=== PATIENT | female | born 1970 | race Caucasian/White ===

== ENCOUNTER 2016-09-04 12:52 | Emergency (ER) ==
[2016-09-04 12:52] VITALS: BMI 32.2
[2016-09-04 12:59] VITALS: BP 121/82; TEMP 98.7
[2016-09-04] MEDS ORDERED: DILAUDID 1 MG/ML SYRINGE IM STA (13:49)
--- NOTE | 2016-09-04 13:50 | ED.PDOC ---
General ED Provider: Dr. LACY BARKER JR Chief Complaint: Tooth Problem Stated Complaint: severe pain left side of head from bad teeth[End]left tooth, facial pain[End]. 02/25 98.7 88 20 97 121/81 Time Seen by Physician: 13:55 Mode of Arrival: Walk-In Information Source: Patient Exam Limitations: No limitations Primary Care Provider: NASIM POTTER Nursing and Triage Documentation Reviewed and Agree: No Review of Systems - Review Of Systems Constitutional: Reports: No symptoms Eyes: Reports: No symptoms Ears, Nose, Mouth, Throat: Reports: Ear pain, Mouth pain, Mouth swelling Respiratory: Reports: Cough Cardiac: Reports: No symptoms GI: Reports: No symptoms : Reports: No symptoms Musculoskeletal: Reports: No symptoms Skin: Reports: No symptoms Neurological: Reports: No symptoms Endocrine: Reports: No symptoms Hematologic/Lymphatic: Reports: No symptoms All Other Systems: Other Past Medical History - Past Medical History Previously Healthy: Yes Endocrine: Reports: None Cardiovascular: Reports: Hypertension Respiratory: Reports: None Hematological: Reports: None Gastrointestinal: Reports: None Genitourinary: Reports: None Neuro/Psych: Reports: None Musculoskeletal: Reports: Arthritis, Back Pain Cancer: Reports: None Last Menstrual Period: nowback surgery x2, left ear surgery, ovarian cyst htn arth Other Pertinent Past Medical History: Dental caries. - Surgical History General Surgical History: Reports: Other (left ear surgery), Unknown. Denies: Back Surgery (back surgery x2, , ovarian cyst htn arth) - Family History Family History: Reports: Unknown - Social History Smoking Status: Current every day smoker Hx Substance Use: No Alcohol Screening: None Physical Exam - Physical Exam Appearance: Well-appearing Ill-appearing: Moderate Pain Distress: Moderate Eyes: PETER, EOMI, Conjunctiva clear ENT: Ears normal, Nose normal, Oropharynx normal Neck: Supple Respiratory: Airway patent, Breath sounds clear, Breath sounds equal, Respirations nonlabored Cardiovascular: RRR, Pulses normal, No rub, No murmur GI/: Soft, Nontender, No masses, Bowel sounds normal, No Organomegaly Musculoskeletal: Normal strength, ROM intact, No edema, No calf tenderness Skin: Warm, Dry, Normal color Neurological: Sensation intact, Motor intact, Reflexes intact, Cranial nerves intact, Alert, Oriented Re-Evaluation - Re-Evaluation Time of Re-Evaluation: 15:22 (disc CXR states will have PMD recheck Xray in [address] offered) Status: Improved Critical Care Note - Critical Care Note Total Time (mins): 0 Course - Course Vital Signs: Temp Pulse Resp BP Pulse Ox 09/04/16 12:54 98.7 F 88 20 121/82 97 Departure - Departure Time of Disposition: 13:56 Disposition: HOME SELF-CARE Discharge Problem: Dental abscess, Lung nodule seen on imaging study Instructions: Dental Abscess (ED), Pulmonary Nodules (ED) Condition: Good Pt referred to PMD for follow-up: Yes Additional Instructions: Augmentin for infection Naprosyn for pain follow up with dentist as soon as possible may take your [place] for pain with Naprosyn antihistamine decongestant for congestion, claritin antihistamine - or any antihistamine note nodule on Chest XRAY- will need to be rechecked in 3 months =discuss xray with your physician Prescriptions: Naproxen [Naprosyn] 500 mg PO Q12HR PRN #30 tablet PRN Reason: PAIN Amoxicillin/Potassium Clav [Augmentin 875-125 mg Tab] 1 tab PO BIDWM #14 tablet Loratadine [Claritin] 10 mg PO DAILY #30 capsule Allergies/Adverse Reactions: Allergies No Known Allergies Allergy (Verified 09/04/16 12:53) Home Medications: Ambulatory Orders Albuterol Sulfate [Proair Hfa] 2 puff IH Q4H PRN 09/04/16 Amoxicillin/Potassium Clav [Augmentin 875-125 mg Tab] 1 tab PO BIDWM #14 tablet 09/04/16 Budesonide/Formoterol Fumarate [Symbicort 160-4.5 Mcg Inhaler] 2 puff IH BID Diazepam [Valium] 10 mg PO QID PRN 09/04/16 Gabapentin [Neurontin] 800 mg PO QID 09/04/16 Hydrochlorothiazide 25 mg PO DAILY 09/04/16 Hydrocodone/Acetaminophen [[place] 10-325 Tablet] 1 each PO QID PRN 09/04/16 Lisinopril 10 mg PO DAILY 09/04/16 Loratadine [Claritin] 10 mg PO DAILY #30 capsule 09/04/16 Naproxen [Naprosyn] 500 mg PO Q12HR PRN #30 tablet 09/04/16
[2016-09-04] MEDS ORDERED: AUGMENTIN 875-125 MG TAB PO STA (13:54)
[2016-09-04] MEDS ORDERED: CORTISPORIN OTIC SUSP OT STA (14:25)
--- NOTE | 2016-09-04 15:10 | DI ---
EXAM: Chest two view, frontal and lateral views. HISTORY: Hemoptysis. COMPARISON: None available. FINDINGS: The heart size is normal. There is no pulmonary vascular congestion. Small nodular dens ity projects over the medial right clavicle on the frontal view, not well seen on the lateral view. A few thin linear opacities are seen in the left base. Otherwise, the lungs are clear. No pleural effusion or pneumothorax is seen. No acute osseous abnormality identified. IMPRESSION: Question medial right apical nodule versus sclerotic bone lesion. Consider chest CT for further mary luation.
== END 2016-09-04 15:30 | disposition home or self-care (01) ==
LOC: ED 12:52
DX: K04.7 Periapical abscess without sinus (principal); R91.1 Solitary pulmonary nodule; F17.210 Nicotine dependence, cigarettes, uncomplicated; Z79.899 Other long term (current) drug therapy
CPT/HCPCS: 96372; 99283

== ENCOUNTER 2017-07-01 19:02 | Emergency (ER) ==
[2017-07-01 19:12] VITALS: TEMP 99; BMI 32.9
--- NOTE | 2017-07-01 19:39 | ED.PDOC ---
General ED Provider: Dr. BROKC MACK Chief Complaint: Tooth Problem Stated Complaint: Patient is a 47 year old female who comes to the ER with Dental pain. She is to been seen by the dentist and is to have full dental extraction in two weeks. Pain is worse since she has had some broken teeth recently. Time Seen by Physician: 19:37 Mode of Arrival: Walk-In Information Source: Patient Exam Limitations: No limitations Primary Care Provider: NASIM POTTER Nursing and Triage Documentation Reviewed and Agree: Yes Reviewed sepsis parameters & appropriate labs ordered?: Yes System Inflammatory Response Syndrome: Not Applicable Sepsis Protocol: For patient's 13 years and over: Temp is 96.8 and below OR 101 and greater Pulse >90 BPM Resp >20/minute Acutely Altered Mental Status Are patient's symptoms suggestive of a new infection, such as: -Pneumonia -Skin, Soft Tissue -Endocarditis -UTI -Bone, Joint Infection -Implantable Device -Acute Abdominal Infection -Wound Infection -Meningitis -Blood Stream Catheter Infection -Unknown System Inflammatory Response Syndrome: Not Applicable EENT Complaint Exam - Dental/Oral Complaint/Exam Mechanism of Injury: No known trauma Onset/Duration: months Symptoms Are: Still present Timing: Constant Initial Severity: Moderate Current Severity: Severe Location: whole mouth Character: Reports: Aching, Throbbing Aggravating: Reports: Heat, Cold, Chewing Alleviating: Reports: None Associated Signs and Symptoms: Reports: Foul odor, Foul taste in mouth Related History: Reports: Previous tooth problem, Third molars absent Dental/Oral Surgical History: Reports: Third Molar Extractions Tooth Findings: Present: Gross decay, Gross caries, Dental fracture, Abcess Cervical Lymphadenopathy Present: No Facial Swelling Present: No Bleeding Present: No Oropharynx Findings: Absent: Clots, Active bleeding Septal Hematoma: No Foreign Body Present: No Dysphagia Present: No Asymmetrical Tonsillar Swelling Present: No Uvula Midline: No Sury-tonsillar Fluctuence: No Trismus Present: No Palatal Petechiae Present: No Scarlatinaform Rash Present: No Teeth Picture: 1 - diffuse carries 2 - diffuse carries Differential Diagnoses: Dental Abcess, Dental Caries Review of Systems - Review Of Systems Constitutional: Reports: No symptoms Eyes: Reports: No symptoms Ears, Nose, Mouth, Throat: Reports: Mouth pain, Loose teeth Respiratory: Reports: No symptoms Cardiac: Reports: No symptoms GI: Reports: No symptoms : Reports: No symptoms Musculoskeletal: Reports: No symptoms Skin: Reports: No symptoms Neurological: Reports: No symptoms Endocrine: Reports: No symptoms Hematologic/Lymphatic: Reports: No symptoms All Other Systems: Reviewed and Negative Past Medical History - Past Medical History Previously Healthy: Yes Endocrine: Reports: None Cardiovascular: Reports: Hypertension Respiratory: Reports: COPD Hematological: Reports: None Gastrointestinal: Reports: None Genitourinary: Reports: None Neuro/Psych: Reports: None Musculoskeletal: Reports: Arthritis, Back Pain Cancer: Reports: None Last Menstrual Period: 4 WEEKS AGO Other Pertinent Past Medical History: Dental caries. - Surgical History General Surgical History: Reports: Other (left ear surgery), Unknown. Denies: Back Surgery (back surgery x2, , ovarian cyst htn arth) - Family History Family History: Reports: Unknown - Social History Smoking Status: Current every day smoker, Heavy tobacco smoker Hx Substance Use: No Alcohol Screening: None - Immunizations Tetanus Shot up to Date: Yes Physical Exam - Physical Exam Appearance: Ill-appearing Ill-appearing: Mild Pain Distress: Severe Eyes: PETER, EOMI, Conjunctiva clear ENT: Ears normal, Nose normal, Oropharynx normal Neck: Supple Respiratory: Airway patent, Breath sounds clear, Breath sounds equal, Respirations nonlabored Cardiovascular: RRR, Pulses normal, No rub, No murmur GI/: Soft, Nontender, No masses, Bowel sounds normal, No Organomegaly Musculoskeletal: Normal strength, ROM intact, No edema, No calf tenderness Skin: Warm, Dry, Normal color Neurological: Sensation intact, Motor intact, Reflexes intact, Cranial nerves intact, Alert, Oriented Psychiatric: Anxious Critical Care Note - Critical Care Note Total Time (mins): 0 Course - Course Vital Signs: Temp Pulse Resp BP Pulse Ox 07/01/17 19:02 99 F 93 H 20 181/113 H 97 Departure - Departure Time of Disposition: 19:44 Disposition: HOME SELF-CARE Discharge Problem: Dental caries Instructions: Dental Caries (GEN) Condition: Fair Pt referred to PMD for follow-up: No IPMP verified?: No Additional Instructions: Take medications as prescribed Follow up with the dentist in 2 weeks for extraction Prescriptions: Amoxicillin [Amoxil] 500 mg PO TID #30 capsule Tramadol HCl [Ultram] 50 mg PO Q6H PRN #25 tablet PRN Reason: Severe Pain Allergies/Adverse Reactions: Allergies No Known Allergies Allergy (Verified 07/01/17 19:12) Home Medications: Ambulatory Orders Albuterol Sulfate [Proair Hfa] 2 puff IH Q4H PRN 09/04/16 Budesonide/Formoterol Fumarate [Symbicort 160-4.5 Mcg Inhaler] 2 puff IH BID Gabapentin [Neurontin] 800 mg PO QID 09/04/16 Risperidone [Risperdal] 0.5 mg PO DAILY 06/14/17 Amoxicillin [Amoxil] 500 mg PO TID #30 capsule 07/01/17 Tramadol HCl [Ultram] 50 mg PO Q6H PRN #25 tablet 07/01/17 Disposition Discussed With: Patient
[2017-07-01] MEDS ORDERED: AMOXIL PO STA (19:51)
[2017-07-01] MEDS ORDERED: ULTRAM PO STA (19:52)
[2017-07-01 19:58] VITALS: BP 180/99
== END 2017-07-01 20:05 | disposition home or self-care (01) ==
LOC: ED 19:02
DX: K02.7 Dental root caries (principal); F17.210 Nicotine dependence, cigarettes, uncomplicated
CPT/HCPCS: 99282